=== PATIENT | female | born 1980 | race Caucasian/White ===

== ENCOUNTER 2019-05-04 16:29 | Inpatient (IN) | payer BC, OTHER ==
[~2019-05-04 16:29] MED LIST: Dexamethasone 20 MG/5 ML VIAL ONE; Glycopyrrolate 0.2 MG/ML 5 ML SYRINGE ONE; Iopamidol-370 76% 500 ML 1 ML ONE; Ketorolac Tromethamine 30 MG/ML VIAL ONE; Lidocaine 1% PF 5 ML VIAL ONE; Metoclopramide HCl 10 MG/2 ML VIAL ONE; Ondansetron PF 4 MG/2 ML Vial ONE; PROPOFOL 200 MG/20 ML VIAL ONE; Rocuronium Bromide 10 MG/ML (10ML VIAL) ONE; Succinylcholine Chloride 20 MG/ML 10 ml SYRINGE FS ONE
[2019-05-04] MEDS ORDERED: Ketamine 50 MG/ML (10ML VIAL) ONE (16:37)
[2019-05-04] MEDS ORDERED: Adacel (T-DAP) 0.5 ML SYRINGE ONE (16:38)
[2019-05-04] MEDS ORDERED: Fentanyl 100 MCG/2 ML VIAL ONE ×5 (16:39→22:17)
[2019-05-04 16:59] LABS: #Basophils 0.1 thou/uL (0.0-0.2); #Eosinphils 0.3 thou/uL (0.0-0.7); #Monocytes 0.4 thou/uL (0.11-0.59); #Neutrophils 12.3 thou/uL (1.40-6.50); %Basophils 0.4 % (0.0-1.0); %Eosinophils 1.6 % (0.0-10.0); %Lymphocytes 18.7 % (21.0-51.0); %Monocytes 2.2 % (0.0-10.0); %Neutrophils 77.1 % (42.0-75.0); Mean Corpuscular HGB CONC 33.5 g/dL (32.0-36.0); Mean Corpuscular Hemoglobin 28.9 pg (27.0-31.0); Mean Corpuscular Volume 86.2 fL (78.0-98.0); Mean Platelet Volume 8.7 fL (7.4-10.4); Platelet Count 297 thou/uL (130-400); RBC Distribution Width 12.7 % (11.5-14.5); Red Blood Cell (RBC) Count 4.51 mill/uL (4.20-5.40); White Blood Cell (WBC) Count 15.9 thou/uL (4.8-10.8)
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
[2019-05-04] MEDS ORDERED: METRONIDAZOLE IVPB ONE (17:00)
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
[2019-05-04 17:06] LABS: PTT 26.6 SEC (22.9-36.1); Prothrombin Time 13.1 SEC (12.0-14.7)
[2019-05-04 17:08] LABS: BHCG - Serum Negative (NEGATIVE); Pregs Control Background? CLEAR/WHITE (CLR/WHITE); Pregs Control Bar Appear? YES (CONTROL BAR)
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
[2019-05-04 17:16] LABS: ALT (SGPT) 46 U/L (8-55); AST (SGOT) 70 U/L (5-34); Albumin 4.2 g/dL (3.5-5.0); Alkaline Phosphatase 50 U/L (40-110); Anion Gap 17 mmol/L (10-20); BUN (Urea Nitrogen) 13 mg/dL (7.0-18.7); Bilirubin, Total 0.4 mg/dL (0.2-1.2); Calc. Creatinine Clearance 0 mL/min (70-130); Calcium 9.8 mg/dL (7.8-10.44); Carbon Dioxide 18 mmol/L (22-29); Chloride 107 mmol/L (98-107); Estimated GFR-MDRD 64; Globulin 2.9 g/dL (2.4-3.5); Glucose 133 mg/dL (70-105); Lipase 40 U/L (8-78); Potassium 4.2 mmol/L (3.5-5.1); Protein, Total 7.1 g/dL (6.0-8.3); Sodium 138 mmol/L (136-145)
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
--- NOTE | 2019-05-04 18:26 | RAD ---
EXAM: LEFT TIBIA AND FIBULA TWO VIEWS: 05/04/19 HISTORY: Post reduction. COMPARISON: Earlier exam this same day. Marked improvement in position and alignment of the markedly comminuted mid tibial shaft fracture and proximal fibular shaft fracture. IMPRESSION: Marked improvement in the comminuted tibial and fibular shaft fractures following post reduction. POS: RRE
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
[2019-05-04] MEDS ORDERED: HYDROmorphone 2 MG/ML VIAL ONE (20:51)
[2019-05-04] MEDS ORDERED: Ondansetron HCl/PF 4 MG/2 ML Vial IVP PRN (20:54)
[2019-05-04] MEDS ORDERED: HYDROmorphone 2 MG/ML VIAL SLOW IVP PRN (20:54)
[2019-05-04] MEDS ORDERED: Morphine Sulfate 2 MG/ML SYRINGE SLOW IVP PRN (20:54)
[2019-05-04] MEDS ORDERED: Promethazine HCl 25 MG/ML VIAL SLOW IVP PRN (20:54)
[2019-05-04] MEDS ORDERED: Promethazine HCl 25 MG/ML VIAL IM PRN ×3 (20:54→23:11)
[2019-05-04] MEDS ORDERED: PACU-Morphine 4MG/ML VIAL SLOW IVP PRN (20:54)
[2019-05-04] MEDS ORDERED: cefTRIAXone\\ROCEPHIN 2 GM VIAL ONE (21:51)
[2019-05-04] MEDS ORDERED: Tobramycin/Dexamethasone Ophth Oint 3.5 GM TUBE ONE (21:53)
[2019-05-04] MEDS ORDERED: Sodium Chloride 0.9% 100 ML ONE (21:59)
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
[2019-05-04] MEDS ORDERED: Morphine 2 MG/ML SYRINGE SLOW IVP PRN (23:11)
[2019-05-04] MEDS ORDERED: Morphine 4 MG/ML VIAL SLOW IVP PRN (23:11)
[2019-05-04] MEDS ORDERED: HYDROcodone/Acetaminophen 10/325 mg Tablet PO PRN ×2 (23:11)
[2019-05-04] MEDS ORDERED: Dextrose 5% in Water 1,000 ML IV PRN (23:11)
[2019-05-04] MEDS ORDERED: Communication Order-Pharmacy FS SCH (23:11)
[2019-05-04] MEDS ORDERED: Ondansetron ODT 4 MG TAB PO PRN (23:11)
[2019-05-04] MEDS ORDERED: Cyclobenzaprine 10 MG TAB PO PRN (23:11)
[2019-05-04] MEDS ORDERED: Ondansetron PF 4 MG/2 ML Vial IVP PRN (23:11)
[2019-05-04] MEDS ORDERED: hydrALAZINE 20 MG/ML VIAL SLOW IVP PRN (23:11)
[2019-05-04] MEDS ORDERED: Dextrose 50% Abboject 50 ML SYRINGE SLOW IVP PRN (23:11)
[2019-05-04] MEDS ORDERED: Famotidine 20 MG TAB PO SCH (23:30)
[2019-05-04] MEDS ORDERED: Ketorolac Tromethamine 30 MG/ML VIAL IVP SCH (23:30)
[2019-05-04] MEDS: Sodium Chloride 0.9% 1,000 ML IV SCH (23:35)
[2019-05-04] MEDS: cefTRIAXone\\ROCEPHIN 2 GM in Sodium Chloride 0.9% 100 ML IVPB SCH (23:35)
[2019-05-04 23:46] LABS: Lactic Acid 3.1 mmol/L (0.5-2.2)
[2019-05-04] MEDS: Acetaminophen 325 MG TAB PO SCH (23:55)
[2019-05-04] MEDS: traMADol HCl 50 MG TAB PO SCH (23:57)
[2019-05-05 00:51] VITALS: BMI 42.8
[2019-05-05] MEDS: metroNIDAZOLE 500 MG in Premix Bag 1 BAG IVPB SCH ×3 (02:06→17:49)
[2019-05-05] MEDS: traMADol HCl 50 MG TAB PO PRN ×2 (03:43→12:42)
[2019-05-05] MEDS: Acetaminophen 325 MG TAB PO SCH ×3 (05:41→17:49)
[2019-05-05] MEDS: traMADol HCl 50 MG TAB PO SCH ×3 (05:41→17:49)
[2019-05-05] MEDS: Ibuprofen 600 MG TAB PO SCH ×3 (05:41→21:10)
[2019-05-05] MEDS: Sodium Chloride 0.9% 1,000 ML IV SCH (05:42)
[2019-05-05 06:37] LABS: #Lymphocytes 0.8 thou/uL (1.20-3.40); #Monocytes 0.5 thou/uL (0.11-0.59); #Neutrophils 8.3 thou/uL (1.40-6.50); %Basophils 0.1 % (0.0-1.0); %Eosinophils 0.1 % (0.0-10.0); %Lymphocytes 8.7 % (21.0-51.0); %Monocytes 4.8 % (0.0-10.0); %Neutrophils 86.4 % (42.0-75.0); Hemoglobin 9.7 g/dL (12.0-16.0); Mean Corpuscular HGB CONC 33.5 g/dL (32.0-36.0); Mean Corpuscular Hemoglobin 29.1 pg (27.0-31.0); Mean Corpuscular Volume 86.8 fL (78.0-98.0); Mean Platelet Volume 8.6 fL (7.4-10.4); Platelet Count 193 thou/uL (130-400); RBC Distribution Width 12.6 % (11.5-14.5); Red Blood Cell (RBC) Count 3.34 mill/uL (4.20-5.40); White Blood Cell (WBC) Count 9.6 thou/uL (4.8-10.8)
[2019-05-05 06:57] LABS: Anion Gap 10 mmol/L (10-20); BUN (Urea Nitrogen) 9 mg/dL (7.0-18.7); Calc. Creatinine Clearance 212 mL/min (70-130); Calcium 8.5 mg/dL (7.8-10.44); Carbon Dioxide 22 mmol/L (22-29); Chloride 108 mmol/L (98-107); Estimated GFR-MDRD 81; Glucose 130 mg/dL (70-105); Potassium 4.1 mmol/L (3.5-5.1); Sodium 136 mmol/L (136-145)
[2019-05-05] MEDS: Polyethylene Glycol 3350 17 GM Packet PO SCH (08:15)
[2019-05-05] MEDS: Bupropion 150 MG XL TAB PO SCH (08:15)
[2019-05-05] MEDS: Senokot S 8.6-50 MG TAB PO SCH ×2 (08:15→21:11)
[2019-05-05 08:24] LABS: Lactic Acid 1.2 mmol/L (0.5-2.2)
[2019-05-05] MEDS ORDERED: TETANUS AND DIPHTHERIA TOX/PF 0.5 ML DISP.SYRIN IM SCH (09:00)
[2019-05-05] MEDS: Famotidine 20 MG TAB PO SCH ×2 (09:10→21:10)
[2019-05-05] MEDS: Scopolamine 1.5 mg/72 hour Patch TD SCH (11:10)
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
[2019-05-05] MEDS ORDERED: FLU VACC QS2019-20(6MOS UP)/PF 60 MCG/0.5 ML SYRINGE IM ONE (21:00)
[2019-05-06] MEDS: Acetaminophen 325 MG TAB PO SCH ×5 (00:09→23:43)
[2019-05-06] MEDS: cefTRIAXone\\ROCEPHIN 2 GM in Sodium Chloride 0.9% 100 ML IVPB SCH ×2 (00:09→23:44)
[2019-05-06] MEDS: traMADol HCl 50 MG TAB PO SCH ×5 (00:10→23:43)
[2019-05-06] MEDS: metroNIDAZOLE 500 MG in Premix Bag 1 BAG IVPB SCH (01:58)
[2019-05-06] MEDS: Ibuprofen 600 MG TAB PO SCH ×3 (05:33→21:42)
[2019-05-06] MEDS: Bupropion 150 MG XL TAB PO SCH (08:36)
[2019-05-06] MEDS: Senokot S 8.6-50 MG TAB PO SCH ×2 (08:40→21:43)
[2019-05-06] MEDS: Enoxaparin Sodium 30 MG/0.3 ML SYRINGE SC SCH ×2 (08:40→21:42)
[2019-05-06] MEDS: Famotidine 20 MG TAB PO SCH ×2 (08:41→21:42)
[2019-05-06] MEDS: Polyethylene Glycol 3350 17 GM Packet PO SCH (08:41)
[2019-05-06 08:49] LABS: #Basophils 0.1 thou/uL (0.0-0.2); #Eosinphils 0.2 thou/uL (0.0-0.7); #Lymphocytes 1.3 thou/uL (1.20-3.40); #Monocytes 0.4 thou/uL (0.11-0.59); #Neutrophils 4.9 thou/uL (1.40-6.50); %Basophils 0.8 % (0.0-1.0); %Eosinophils 3.5 % (0.0-10.0); %Lymphocytes 18.5 % (21.0-51.0); %Monocytes 5.2 % (0.0-10.0); Hemoglobin 8.4 g/dL (12.0-16.0); Mean Corpuscular Hemoglobin 28.8 pg (27.0-31.0); Mean Corpuscular Volume 87.1 fL (78.0-98.0); Mean Platelet Volume 8.5 fL (7.4-10.4); Platelet Count 140 thou/uL (130-400); RBC Distribution Width 12.8 % (11.5-14.5); Red Blood Cell (RBC) Count 2.92 mill/uL (4.20-5.40); White Blood Cell (WBC) Count 6.8 thou/uL (4.8-10.8)
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
[2019-05-06 09:10] LABS: Anion Gap 10 mmol/L (10-20); BUN (Urea Nitrogen) 6 mg/dL (7.0-18.7); Calc. Creatinine Clearance 221 mL/min (70-130); Calcium 8.2 mg/dL (7.8-10.44); Carbon Dioxide 24 mmol/L (22-29); Chloride 108 mmol/L (98-107); Estimated GFR-MDRD 85; Glucose 83 mg/dL (70-105); Magnesium 1.8 mg/dL (1.6-2.6); Phosphorus 2.4 mg/dL (2.3-4.7); Potassium 3.7 mmol/L (3.5-5.1); Sodium 138 mmol/L (136-145)
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
[2019-05-06] MEDS: Ferrous Sulfate 325 MG TAB PO SCH (17:04)
[2019-05-06] MEDS: Ascorbic Acid 500 mg Chewable Tablet PO SCH (21:43)
[2019-05-07] MEDS: Acetaminophen 325 MG TAB PO SCH ×4 (05:20→23:26)
[2019-05-07] MEDS: traMADol HCl 50 MG TAB PO SCH ×4 (05:20→23:26)
[2019-05-07] MEDS: Ibuprofen 600 MG TAB PO SCH ×3 (05:20→21:20)
[2019-05-07] MEDS: Bupropion 150 MG XL TAB PO SCH (08:10)
[2019-05-07] MEDS: Ferrous Sulfate 325 MG TAB PO SCH ×2 (09:15→17:33)
[2019-05-07] MEDS: Ascorbic Acid 500 mg Chewable Tablet PO SCH ×2 (09:15→21:20)
[2019-05-07] MEDS: Famotidine 20 MG TAB PO SCH ×2 (09:15→21:20)
[2019-05-07] MEDS: Polyethylene Glycol 3350 17 GM Packet PO SCH (09:16)
[2019-05-07] MEDS: Enoxaparin Sodium 30 MG/0.3 ML SYRINGE SC SCH ×2 (09:16→21:21)
[2019-05-07] MEDS: Senokot S 8.6-50 MG TAB PO SCH ×2 (09:18→21:20)
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
[2019-05-08] MEDS: traMADol HCl 50 MG TAB PO SCH ×4 (05:52→23:00)
[2019-05-08] MEDS: Ibuprofen 600 MG TAB PO SCH ×3 (05:52→22:59)
[2019-05-08] MEDS: Acetaminophen 325 MG TAB PO SCH ×4 (05:52→23:00)
[2019-05-08] MEDS: Ascorbic Acid 500 mg Chewable Tablet PO SCH ×2 (08:59→20:18)
[2019-05-08] MEDS: Famotidine 20 MG TAB PO SCH ×2 (08:59→20:18)
[2019-05-08] MEDS: Polyethylene Glycol 3350 17 GM Packet PO SCH (08:59)
[2019-05-08] MEDS: Ferrous Sulfate 325 MG TAB PO SCH ×2 (08:59→18:00)
[2019-05-08] MEDS: Senokot S 8.6-50 MG TAB PO SCH ×2 (08:59→20:19)
[2019-05-08] MEDS: Enoxaparin Sodium 30 MG/0.3 ML SYRINGE SC SCH ×2 (09:00→20:18)
[2019-05-08] MEDS: Bupropion 150 MG XL TAB PO SCH (09:00)
[2019-05-08] MEDS: Scopolamine 1.5 mg/72 hour Patch TD SCH (10:07)
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
[2019-05-09] MEDS: traMADol HCl 50 MG TAB PO SCH ×4 (05:25→23:00)
[2019-05-09] MEDS: Acetaminophen 325 MG TAB PO SCH ×4 (05:25→23:00)
[2019-05-09] MEDS: Ibuprofen 600 MG TAB PO SCH ×3 (05:25→22:59)
[2019-05-09] MEDS: Ferrous Sulfate 325 MG TAB PO SCH ×2 (08:31→17:46)
[2019-05-09] MEDS: Enoxaparin Sodium 30 MG/0.3 ML SYRINGE SC SCH ×2 (08:31→20:39)
[2019-05-09] MEDS: Ascorbic Acid 500 mg Chewable Tablet PO SCH ×2 (08:31→20:39)
[2019-05-09] MEDS: Famotidine 20 MG TAB PO SCH ×2 (08:32→20:39)
[2019-05-09] MEDS: Bupropion 150 MG XL TAB PO SCH (08:37)
[2019-05-09] MEDS: Senokot S 8.6-50 MG TAB PO SCH ×2 (08:38→20:40)
[2019-05-09] MEDS: Polyethylene Glycol 3350 17 GM Packet PO SCH (08:38)
[2019-05-09] MEDS ORDERED: Aspirin/APAP/Caffeine Tab (Excedrin Migraine) PO PRN (11:33)
[2019-05-09] MEDS ORDERED: Benzonatate 100 MG CAP PO PRN (11:33)
[2019-05-09] MEDS ORDERED: hydrOXYzine 25 MG TAB PO PRN (11:33)
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
[2019-05-10] MEDS: traMADol HCl 50 MG TAB PO SCH ×2 (05:05→11:54)
[2019-05-10] MEDS: Ibuprofen 600 MG TAB PO SCH ×2 (05:05→15:02)
[2019-05-10] MEDS: Acetaminophen 325 MG TAB PO SCH ×2 (05:05→11:53)
[2019-05-10] MEDS ORDERED: Fluticasone Propionate Nasal Spray 16 gm Bottle NASAL SCH (09:00)
[2019-05-10] MEDS ORDERED: Loratadine 10 MG TAB PO SCH (09:00)
[2019-05-10] MEDS: Bupropion 150 MG XL TAB PO SCH (09:04)
[2019-05-10] MEDS: Senokot S 8.6-50 MG TAB PO SCH (09:05)
[2019-05-10] MEDS: Polyethylene Glycol 3350 17 GM Packet PO SCH (09:05)
[2019-05-10] MEDS: Ferrous Sulfate 325 MG TAB PO SCH (09:07)
[2019-05-10] MEDS: Ascorbic Acid 500 mg Chewable Tablet PO SCH (09:07)
[2019-05-10] MEDS: Enoxaparin Sodium 30 MG/0.3 ML SYRINGE SC SCH (09:07)
[2019-05-10] MEDS: Famotidine 20 MG TAB PO SCH (09:07)
[2019-05-10 12:11] VITALS: BP 141/93; TEMP 98.8
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
== END 2019-05-10 15:08 | DRG 958 ==
LOC: ERS 16:29 → SDC/OP 18:47 → SURG A 23:11
PROVIDERS: ADMIT Surgery; ATTEND Surgery
PROC: 0QSH06Z Reposition Left Tibia with Intramedullary Internal Fixation Device, Open Approach (ICD-10-PCS; principal; 2019-05-04)
PROC: 0QSJXZZ Reposition Right Fibula, External Approach (ICD-10-PCS; 2019-05-04)
DX: S82.252C Displaced comminuted fracture of shaft of left tibia, initial encounter for open fracture type IIIA, IIIB, or IIIC (principal); S27.0XXA Traumatic pneumothorax, initial encounter; Z68.41 Body mass index [BMI] 40.0-44.9, adult; S82.491A Other fracture of shaft of right fibula, initial encounter for closed fracture; S43.102A Unspecified dislocation of left acromioclavicular joint, initial encounter; S06.0X0A Concussion without loss of consciousness, initial encounter; V09.9XXA Pedestrian injured in unspecified transport accident, initial encounter; Y92.410 Unspecified street and highway as the place of occurrence of the external cause; J45.909 Unspecified asthma, uncomplicated; E66.01 Morbid (severe) obesity due to excess calories; F07.81 Postconcussional syndrome; D64.9 Anemia, unspecified; Z90.710 Acquired absence of both cervix and uterus; Z88.0 Allergy status to penicillin; Z88.2 Allergy status to sulfonamides; Z72.0 Tobacco use; S30.811A Abrasion of abdominal wall, initial encounter; S40.812A Abrasion of left upper arm, initial encounter; S40.811A Abrasion of right upper arm, initial encounter; S40.021A Contusion of right upper arm, initial encounter; S30.1XXA Contusion of abdominal wall, initial encounter
CPT/HCPCS: 27752; 36415; 36416; 51702; 70450; 71045; 71260; 72125; 72170; 74177; 76000; 80048; 80053; 83605; 83690; 83735; 84100; 84703; 85025; 85610; 85730; 86850; 86900; 86901; 90471; 90686; 90715; 93005; 96361; 96374; 96375; 99156; C1713; C1769; G0008; G0390; J0690; J0696; J1100; J1170; J1650; J1885; J2001; J2405; J2704; J2765; J3010; J3370; J3490; Q9967